=== PATIENT | female | born 1960 | race Caucasian/White ===

== ENCOUNTER 2023-01-18 18:28 | Inpatient (IN) | payer OTHER ==
[~2023-01-18] VITALS: Ht 162.6 cm; Wt 69.4 kg
[2023-01-18 18:33] VITALS: BP 136/89
[2023-01-18] MEDS ORDERED: SUMATRIPTAN SU100 M1 PO (18:42)
[2023-01-19] VITALS (8 sets, daily range): BP systolic 102–128; BP diastolic 56–70
[2023-01-19 07:27] LABS: BASO % 0.2 % (0.0-1.0); EOS % 0.6 % (1.0-4.0); HEMATOCRIT 34.7 % (37.0-47.0); LYMPH # 1.2 10*3/uL (1.3-4.4); LYMPH % 22.9 % (27.0-41.0); MEAN CORPUSCULAR HGB CONC 32.3 g/dl (33.0-37.0); MEAN PLATELET VOLUME 11.5 fl (9.6-12.3); MONO # 0.5 10*3/uL (0.1-1.0); MONO % 9.7 % (3.0-9.0); NEUT # 3.6 10*3/uL (2.3-7.9); NEUT % 66.4 % (47.0-73.0); PLATELET COUNT AUTOMATED 165 10*3/uL (130-400); RED BLOOD COUNT 3.73 10*6/uL (4.10-5.10); RED CELL DISTRI WIDTH 12.7 % (0-14.5); WHITE BLOOD COUNT 5.4 10*3/uL (4.8-10.8)
[2023-01-19 07:41] LABS: ACT PARTIAL THROMBO TIME 24.7 SECONDS (20.0-32.1)
[2023-01-19 08:18] LABS: ALKALINE PHOSPHATASE 45 U/L (46-116); BUN 10 mg/dl (9-23); CHLORIDE 108 mmol/L (98-107); POTASSIUM 4.1 mmol/L (3.4-5.1); SGPT/ALT 14 U/L (10-49); TOTAL PROTEIN 5.9 gm/dL (6.0-8.0)
[2023-01-20] VITALS: BP 106/59
[2023-01-20 08:00] VITALS: BP 119/66
[2023-01-20 08:23] LABS: ALKALINE PHOSPHATASE 39 U/L (46-116); BUN 6 mg/dl (9-23); CHLORIDE 108 mmol/L (98-107); POTASSIUM 3.4 mmol/L (3.4-5.1); SGPT/ALT 12 U/L (10-49); TOTAL PROTEIN 5.4 gm/dL (6.0-8.0)
[2023-01-20] MEDS ORDERED: ASPIRIN ADULT L81 M1 PO (11:28)
[2023-01-20] MEDS ORDERED: HYDROCODONE-AC1 EAC1 PO (11:28)
[2023-01-20 12:00] VITALS: BP 104/70
== END 2023-01-20 13:27 | disposition home or self-care (01) | DRG 494 ==
LOC: ED 18:28 → EDHOLD 22:31 → 5E 23:27
PROVIDERS: Internal Medicine; ADMIT Family Medicine; ATTEND Family Medicine
PROC: 0QSG06Z Reposition Right Tibia with Intramedullary Internal Fixation Device, Open Approach (ICD-10-PCS; principal; 2023-01-19)
PROC: 3E0T3BZ Introduction of Anesthetic Agent into Peripheral Nerves and Plexi, Percutaneous Approach (ICD-10-PCS; 2023-01-19)
PROC: 3E0T33Z Introduction of Anti-inflammatory into Peripheral Nerves and Plexi, Percutaneous Approach (ICD-10-PCS; 2023-01-19)
DX: S82.251A Displaced comminuted fracture of shaft of right tibia, initial encounter for closed fracture (principal); S82.451A Displaced comminuted fracture of shaft of right fibula, initial encounter for closed fracture; D64.9 Anemia, unspecified; Y93.89 Activity, other specified; Y92.89 Other specified places as the place of occurrence of the external cause; Y99.8 Other external cause status; V89.2XXA Person injured in unspecified motor-vehicle accident, traffic, initial encounter; Z98.891 History of uterine scar from previous surgery; Z82.49 Family history of ischemic heart disease and other diseases of the circulatory system

== ENCOUNTER → 2023-02-04 | Outpatient (CLI) | payer OTHER ==
[~2023-02-04] MED LIST: ASPIRIN ADULT L81 M1 PO; HYDROCODONE-AC1 EAC1 PO; SUMATRIPTAN SU100 M1 PO
== END | disposition home or self-care (01) ==
LOC: RAD 10:28 → ORTHO 10:28
PROVIDERS: ATTEND Orthopaedic Surgery
DX: S82.251D Displaced comminuted fracture of shaft of right tibia, subsequent encounter for closed fracture with routine healing (principal); X58.XXXD Exposure to other specified factors, subsequent encounter

== ENCOUNTER → 2023-03-13 | Outpatient (CLI) | payer OTHER | END | disposition home or self-care (01) | LOC: ORTHO 00:55 | PROVIDERS: ATTEND Orthopaedic Surgery | DX: S82.251D Displaced comminuted fracture of shaft of right tibia, subsequent encounter for closed fracture with routine healing (principal); X58.XXXD Exposure to other specified factors, subsequent encounter ==

== ENCOUNTER → 2023-04-08 | Outpatient (CLI) | payer OTHER | END | disposition home or self-care (01) | LOC: ORTHO 01:25 | PROVIDERS: ATTEND Orthopaedic Surgery | DX: S82.251D Displaced comminuted fracture of shaft of right tibia, subsequent encounter for closed fracture with routine healing (principal); M17.11 Unilateral primary osteoarthritis, right knee; M79.89 Other specified soft tissue disorders; X58.XXXD Exposure to other specified factors, subsequent encounter ==

== ENCOUNTER → 2023-07-19 | Outpatient (CLI) | payer OTHER | END | disposition home or self-care (01) | LOC: ORTHO 00:46 | PROVIDERS: ATTEND Orthopaedic Surgery | DX: S82.251D Displaced comminuted fracture of shaft of right tibia, subsequent encounter for closed fracture with routine healing (principal); M20.21 Hallux rigidus, right foot; M19.071 Primary osteoarthritis, right ankle and foot; X58.XXXD Exposure to other specified factors, subsequent encounter ==

== ENCOUNTER → 2024-01-27 | Outpatient (CLI) | payer MEDICARE | END | disposition home or self-care (01) | LOC: ORTHO 09:14 | PROVIDERS: ATTEND Orthopaedic Surgery | DX: S82.251D Displaced comminuted fracture of shaft of right tibia, subsequent encounter for closed fracture with routine healing (principal); X58.XXXD Exposure to other specified factors, subsequent encounter ==

== ENCOUNTER → 2024-02-11 | Day surgery (SDC) | payer MEDICARE ==
[~2024-02-11] VITALS: Ht 162.5 cm; Wt 65.8 kg
[~2024-02-11] MED LIST changes: +Bupivacaine Hydrochloride/Ep2 30 ML VIAL ONE; +Lactated Ringer's Solution 1,000 ML IV ONE; +Midazolam Hydrochloride 2 MG/2 ML VIAL IV ONE; +PROPOFOL 200 MG/20 ML VIAL IV ONE; +ceFAZolin sodium 2GM/20ML IV ONE; +ceFAZolin sodium/sodium chlor 10 ML IV ONE
[2024-02-11 07:30] VITALS: BP 122/64
[2024-02-11 08:56] VITALS: BP 83/49
[2024-02-11 09:11] VITALS: BP 82/55
[2024-02-11 09:24] VITALS: BP 129/64
== END | disposition home or self-care (01) ==
LOC: SDC 02-03 13:15
PROVIDERS: ATTEND Orthopaedic Surgery
DX: T84.89XA Other specified complication of internal orthopedic prosthetic devices, implants and grafts, initial encounter (principal); Z98.890 Other specified postprocedural states; X58.XXXA Exposure to other specified factors, initial encounter